=== PATIENT | male | born 1995 | race Caucasian/White ===

== ENCOUNTER 2017-03-14 02:48 | Emergency (ER) | payer OTHER ==
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
[2017-03-14 02:57] VITALS: BP 126/86; PULSE 70; RESP 20; TEMP 97.5; O2SAT 99
== END 2017-03-14 03:25 | disposition home or self-care (01) ==
LOC: EDUNIT#
DX: S00.83XA Contusion of other part of head, initial encounter (principal); F10.920 Alcohol use, unspecified with intoxication, uncomplicated; Y04.0XXA Assault by unarmed brawl or fight, initial encounter; Y92.89 Other specified places as the place of occurrence of the external cause; Y93.89 Activity, other specified